=== PATIENT | male | born 1965 | race Caucasian/White ===

== ENCOUNTER 2018-05-27 16:38 | Emergency (ER) | payer SELFPAY ==
[2018-05-27] MEDS ORDERED: PIPERACILLIN/TAZOBACTAM 3.375 GM in SODIUM CHLORIDE 0.9% 100ML 100 ML IVPB ONE (16:43)
[2018-05-27] MEDS ORDERED: DEXAMETHASONE INJ 4 MG/ML VIAL IV ONE (16:43)
[2018-05-27] MEDS ORDERED: PIPERACILLIN/TAZOBACTAM 3.375 GM VIAL IVPB ONE (17:06)
[2018-05-27] MEDS ORDERED: SODIUM CHLORIDE 0.9% 100ML 100 ML IVPB ONE (17:07)
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
[2018-05-27 21:44] VITALS: BP 132/81; TEMP 98.1; O2SAT 96
== END 2018-05-27 21:46 | disposition home or self-care (01) ==
LOC: ER 16:38
DX: T75.1XXA Unspecified effects of drowning and nonfatal submersion, initial encounter (principal); I49.8 Other specified cardiac arrhythmias; R53.1 Weakness; I49.3 Ventricular premature depolarization; R51 Headache; Y93.11 Activity, swimming; Y92.828 Other wilderness area as the place of occurrence of the external cause
CPT/HCPCS: 36415; 36600; 71045; 80048; 80053; 80320; 82550; 82553; 82803; 82805; 83605; 83880; 84484; 85025; 85610; 85730; 93005; J1100; J2543; J7050